=== PATIENT | female | born 1965 | race Asian ===

== ENCOUNTER 2023-08-16 14:05 | Outpatient (AMB) | payer OTHER, SELFPAY ==
--- NOTE | 2023-08-16 14:09 | HO.NEPHOV ---
HPI HPI Comments History of Present Illness Details Sheree is a pleasant middle-aged woman with a history of longstanding hypertension obesity and dyslipidemia with CKD. She has elected current episodes of hyperkalemia. She was accompanied by her son was able to translate today. She does not have any specific urinary complaints. No edema. No shortness of breath. She has had vague abdominal pain for last few months without any associated diarrhea or constipation. She has no pain today [facility] Social History (Updated 08/16/23 @ 14:18 by Dori Mo) Alcohol intake: never Patient Tobacco Use Status: Never used Tobacco Vital Signs 08/16/23 14:13 Height 5 ft 4 in Weight 174 lb BMI 29.9 BP 132/74 Blood Pressure Location Lt brachial Position Sitting Pulse 85 Pulse Source Pulse Oximeter Pulse Oximetry (%) 98 Oxygen Delivery Method Room Air Physical Exam Vital Signs: Last Vital Signs Pulse 85 08/16/23 14:13 BP 132/74 08/16/23 14:13 Pulse Ox 98 08/16/23 14:13 Oxygen Delivery Method Room Air 08/16/23 14:13 BMI result Body Mass Index 29.9 Const General: comfortable; No acute distress Orientation/consciousness: patient oriented x3 Eyes General: appearance normal, both eyes and all related structures Visual Bullock: normal visual bullock by confrontation Neck Neck: Yes supple and Yes no JVD Resp Effort & Inspection: normal respiratory effort and respiratory effort not decreased Auscultation: rhonchi Cardio Palpation: no palpable S3 and no palpable S4 Heart sounds: no rubs GI Inspection: Yes normal to inspection Palpation (GI): Soft to palpation Percussion: Yes normal to percussion Auscultation: normal bowel sounds General: Yes no CVA tenderness Back/Spine/Pelvis Back: no CVA tenderness Skin General skin exam: no petechiae and no purpura Neuro General: patient oriented x3 and no focal motor deficits Extrem General: No clubbing and No edema Results Reviewed Results Reviewed: Lab results from November 10 was reviewed Potassium was normal Assessment & Plan Assessment & Plan (1) CKD (chronic kidney disease) stage 3, GFR 30-59 ml/min: Code(s): N18.30 - Chronic kidney disease, stage 3 unspecified (2) Hyperkalemia: Code(s): E87.5 - Hyperkalemia Plan Middle-aged woman with longstanding diabetes mellitus which has been suboptimally controlled has CKD most likely due to diabetic nephropathy. She has significant proteinuria again due to underlying diabetic kidney disease. She has had recurrent hyperkalemia. She has history of hypertension and blood pressure has been well controlled. Recommendations Low-sodium low-potassium diet. Continue with low-dose of losartan for renal protection. She will benefit from in his SGLT2 inhibitor Continue with hydrochlorothiazide for both to control blood pressure and Kaleuresis. Discussed importance of tight control of blood sugar and weight loss to slow portion disease. Lab works as ordered. Answered all the questions Orders: Orders Electrolytes Today N18.30 - Chronic kidney disease, stage 3 unspecified Blood Urea Nitrogen Today N18.30 - Chronic kidney disease, stage 3 unspecified Creatinine Today N18.30 - Chronic kidney disease, stage 3 unspecified Complete Blood Count no Diff Today N18.30 - Chronic kidney disease, stage 3 unspecified Total Protein Urine Random Today N18.30 - Chronic kidney disease, stage 3 unspecified Hemoglobin A1c Today N18.30 - Chronic kidney disease, stage 3 unspecified Electrolytes 2 Months N18.30 - Chronic kidney disease, stage 3 unspecified Blood Urea Nitrogen 2 Months N18.30 - Chronic kidney disease, stage 3 unspecified Calcium Today N18.30 - Chronic kidney disease, stage 3 unspecified Creatinine Urine Today N18.30 - Chronic kidney disease, stage 3 unspecified Creatinine 2 Months N18.30 - Chronic kidney disease, stage 3 unspecified Coding Level of Care Code Est Pt Level 3 (37383) Diagnoses CKD (chronic kidney disease) stage 3, GFR 30-59 ml/min N18.30 Hyperkalemia E87.5
[2023-08-16 14:13] VITALS: BP 132/74; PULSE 85; O2SAT 98; BMI 29.9
== END 2023-08-16 14:38 | disposition home or self-care (01) ==
PROVIDERS: Visit Provider Internal Medicine Hypertension Specialist
DX: N18.30 Chronic kidney disease, stage 3 unspecified (principal); E87.5 Hyperkalemia
CPT/HCPCS: 99213

== ENCOUNTER 2023-08-16 14:05 | Outpatient (REF) | payer OTHER, SELFPAY | END 2023-08-16 14:06 | disposition home or self-care (01) | LOC: CF 14:05 | PROVIDERS: Visit Provider Internal Medicine Hypertension Specialist | DX: N18.30 Chronic kidney disease, stage 3 unspecified (principal); E87.5 Hyperkalemia | CPT/HCPCS: 99212 ==

== ENCOUNTER 2023-10-18 10:43 | Outpatient (AMB) | payer OTHER, SELFPAY ==
[2023-10-18 10:50] VITALS: BP 126/80; PULSE 87; O2SAT 98; BMI 29.7
--- NOTE | 2023-10-18 10:50 | HO.NEPHOV ---
HPI HPI Comments History of Present Illness Details Sheree is a pleasant middle-aged woman with a history of longstanding hypertension obesity and dyslipidemia with CKD. She has elected current episodes of hyperkalemia. She was accompanied by her son was able to translate today. She does not have any specific urinary complaints. No edema. No shortness of breath. She has had vague abdominal pain for last few months without any associated diarrhea or constipation. She has no pain today [facility] Social History Alcohol intake: never Patient Tobacco Use Status: Never used Tobacco Vital Signs 10/18/23 10:50 Height 5 ft 4 in Weight 173 lb 4 oz BMI 29.7 BP 126/80 Blood Pressure Location Lt brachial Position Sitting Pulse 87 Pulse Source Pulse Oximeter Pulse Oximetry (%) 98 Oxygen Delivery Method Room Air Physical Exam Vital Signs: Last Vital Signs Pulse 87 10/18/23 10:50 BP 126/80 10/18/23 10:50 Pulse Ox 98 10/18/23 10:50 Oxygen Delivery Method Room Air 10/18/23 10:50 BMI result Body Mass Index 29.7 Const General: comfortable; No acute distress Orientation/consciousness: patient oriented x3 Eyes General: appearance normal, both eyes and all related structures Visual Buck: normal visual buck by confrontation Neck Neck: Yes supple and Yes no JVD Resp Effort & Inspection: normal respiratory effort and respiratory effort not decreased Auscultation: rhonchi Cardio Palpation: no palpable S3 and no palpable S4 Heart sounds: no rubs GI Inspection: Yes normal to inspection Palpation (GI): Soft to palpation Percussion: Yes normal to percussion Auscultation: normal bowel sounds General: Yes no CVA tenderness Back/Spine/Pelvis Back: no CVA tenderness Skin General skin exam: no petechiae and no purpura Neuro General: patient oriented x3 and no focal motor deficits Extrem General: No clubbing and No edema Assessment & Plan Assessment & Plan (1) CKD (chronic kidney disease) stage 3, GFR 30-59 ml/min: Code(s): N18.30 - Chronic kidney disease, stage 3 unspecified (2) Hyperkalemia: Code(s): E87.5 - Hyperkalemia Plan Middle-aged woman with longstanding diabetes mellitus which has been suboptimally controlled has CKD most likely due to diabetic nephropathy. She has significant proteinuria again due to underlying diabetic kidney disease. She has had recurrent hyperkalemia. She has history of hypertension and blood pressure has been well controlled. Recommendations Low-sodium low-potassium diet. Continue with low-dose of losartan for renal protection. She will benefit from SGLT2 inhibitor Continue with hydrochlorothiazide for both to control blood pressure and Kaleuresis. Discussed importance of tight control of blood sugar and weight loss to slow portion disease. Lab works as ordered. Orders: Orders Comprehensive Met. Panel 4 Months N18.30 - Chronic kidney disease, stage 3 unspecified Complete Blood Count no Diff 4 Months N18.30 - Chronic kidney disease, stage 3 unspecified Coding Level of Care Code Est Pt Level 4 (44228) Diagnoses CKD (chronic kidney disease) stage 3, GFR 30-59 ml/min N18.30 Hyperkalemia E87.5 Results Reviewed Nephrology Results: No Data to Display
== END 2023-10-18 11:05 | disposition home or self-care (01) ==
PROVIDERS: Visit Provider Internal Medicine Hypertension Specialist
DX: N18.30 Chronic kidney disease, stage 3 unspecified (principal); E87.5 Hyperkalemia
CPT/HCPCS: 99214

== ENCOUNTER → 2023-10-18 10:43 | Outpatient (BNVA) | payer OTHER, SELFPAY | PROVIDERS: Visit Provider Internal Medicine Hypertension Specialist | DX: I12.9 Hypertensive chronic kidney disease with stage 1 through stage 4 chronic kidney disease, or unspecified chronic kidney disease (principal); N18.30 Chronic kidney disease, stage 3 unspecified; E87.5 Hyperkalemia; Z79.899 Other long term (current) drug therapy | CPT/HCPCS: 99212 ==

== ENCOUNTER 2024-02-14 10:00 | Outpatient (AMB) | payer OTHER, SELFPAY ==
[2024-02-14 10:04] VITALS: BP 132/78; PULSE 82; O2SAT 98; BMI 30.6
--- NOTE | 2024-02-14 10:04 | HO.NEPHOV_ITS ---
Vital Signs 02/14/24 10:04 Height 5 ft 4 in Weight 178 lb BMI 30.6 BP 132/78 Blood Pressure Location Lt brachial Position Sitting Pulse 82 Pulse Source Pulse Oximeter Pulse Oximetry (%) 98 Oxygen Delivery Method Room Air Intake Visit Reasons: May follow up? Confirmed Barrel Bridge Assembler Required: No Accompanied by: Son Allergies No Known Allergies Allergy (Verified 02/14/24 10:07) Medication List - Last Reconciled 02/14/24 by Juan C Bravo MD aspirin 81 mg PO DAILY atorvastatin 40 mg PO DAILY cholecalciferol (vitamin D3) (Vitamin D3) 25 mcg PO DAILY dapagliflozin propanediol (Farxiga) 10 mg PO DAILY dulaglutide (Trulicity) 0.75 mg subcut QWEEK folic acid 0.8 mg PO DAILY gabapentin 300 mg PO TID hydrochlorothiazide 25 mg PO DAILY insulin glargine (Lantus U-100 Insulin) 10 units subcut QPM insulin lispro (Humalog KwikPen (U-100) Insulin) 10 units subcut TID losartan 25 mg PO DAILY HPI Comments Details: Sheree is a pleasant middle-aged woman with a history of longstanding hypertension obesity and dyslipidemia with CKD. She has elected current episodes of hyperkalemia. She was accompanied by her son was able to translate today. She does not have any specific urinary complaints. No edema. No shortness of breath. She has had vague abdominal pain for last few months without any associated diarrhea or constipation. She has no pain today [facility] Social History Alcohol intake: never Patient Tobacco Use Status: Never used Tobacco Physical Exam Vital Signs: Last Vital Signs Pulse 82 02/14/24 10:04 BP 132/78 02/14/24 10:04 Pulse Ox 98 02/14/24 10:04 Oxygen Delivery Method Room Air 02/14/24 10:04 BMI result Body Mass Index 30.6 Const General: comfortable; No acute distress Orientation/consciousness: patient oriented x3 Eyes General: appearance normal, both eyes and all related structures Visual Bullock: normal visual bullock by confrontation Neck Neck: Yes supple and Yes no JVD Resp Effort & Inspection: normal respiratory effort and respiratory effort not decreased Auscultation: rhonchi Cardio Palpation: no palpable S3 and no palpable S4 Heart sounds: no rubs GI Inspection: Yes normal to inspection Palpation (GI): Soft to palpation Percussion: Yes normal to percussion Auscultation: normal bowel sounds General: Yes no CVA tenderness Back/Spine/Pelvis Back: no CVA tenderness Skin General skin exam: no petechiae and no purpura Neuro General: patient oriented x3 and no focal motor deficits Extrem General: No clubbing and No edema Results Reviewed Results Reviewed: Labs ordered Nephrology Results: No Data to Display Assessment & Plan Assessment & Plan (1) CKD (chronic kidney disease) stage 3, GFR 30-59 ml/min: Code(s): N18.30 - Chronic kidney disease, stage 3 unspecified Category: Medical (2) Hyperkalemia: Code(s): E87.5 - Hyperkalemia Category: Medical Plan Middle-aged woman with longstanding diabetes mellitus which has been suboptimally controlled has CKD most likely due to diabetic nephropathy. She has significant proteinuria again due to underlying diabetic kidney disease. She has had recurrent hyperkalemia. She has history of hypertension and blood pressure has been well controlled. Recommendations Low-sodium low-potassium diet. Continue with low-dose of losartan for renal protection. She will benefit from SGLT2 inhibitor Continue with hydrochlorothiazide for both to control blood pressure and Kaleuresis. Discussed importance of tight control of blood sugar and weight loss to slow portion disease. Lab works as ordered. Orders: Orders Complete Blood Count Auto Diff Today N18.30 - Chronic kidney disease, stage 3 unspecified Comprehensive Met. Panel Today N18.30 - Chronic kidney disease, stage 3 unspecified, N18.9 - Chronic kidney disease, unspecified Parathyroid Hormone Intact Today N18.30 - Chronic kidney disease, stage 3 unspecified Medications: New dapagliflozin propanediol (Farxiga) 10 mg PO DAILY 90 tabs 0RF losartan 25 mg PO DAILY 90 tabs 0RF atorvastatin 40 mg PO DAILY 90 tabs 0RF folic acid 0.8 mg PO DAILY 90 tabs 0RF hydrochlorothiazide 25 mg PO DAILY 90 tabs 0RF aspirin 81 mg PO DAILY 90 tabs 0RF Coding Level of Care Code Est Pt Level 4 (30475) Diagnoses CKD (chronic kidney disease) stage 3, GFR 30-59 ml/min N18.30 Hyperkalemia E87.5
== END 2024-02-14 10:25 | disposition home or self-care (01) ==
PROVIDERS: Visit Provider Internal Medicine Hypertension Specialist
DX: N18.30 Chronic kidney disease, stage 3 unspecified (principal); E87.5 Hyperkalemia
CPT/HCPCS: 99214

== ENCOUNTER → 2024-02-14 10:00 | Outpatient (BNVA) | payer OTHER, SELFPAY | PROVIDERS: Visit Provider Internal Medicine Hypertension Specialist | DX: N18.30 Chronic kidney disease, stage 3 unspecified (principal); E87.5 Hyperkalemia | CPT/HCPCS: 99212 ==

== ENCOUNTER 2024-02-14 10:32 | Outpatient (REF) | payer OTHER, SELFPAY ==
[2024-02-14 14:47] LABS: MANUAL DIFF FLAG NO
[2024-02-14 14:54] LABS: Parathyroid Hormone Intact 160.1 pg/mL (8.7-77.1)
[2024-02-14 15:21] LABS: Alanine Aminotransferase 12 U/L (0-31); Albumin Level 3.6 g/dL (3.5-5.0); Alkaline Phosphatase 113 U/L (39-117); Anion Gap 11 (12-20); Aspartate Amino Transferase 20 U/L (5-31); Bilirubin Total 0.5 mg/dL (0.0-1.0); Blood Urea Nitrogen 8 mg/dL (9-16); Calcium 8.6 mg/dL (8.4-10.2); Carbon Dioxide 18 mmol/L (22-29); Chloride 114 mmol/L (96-108); Estimated Glomerular Filt Rate 32; Glucose Random 227 mg/dL (60-115); Potassium 4.6 mmol/L (3.3-5.1); Sodium 138 mmol/L (135-145); Total Protein 7.4 g/dL (6.5-8.0)
[2024-02-14 15:24] LABS: Basophils Percent Auto 0.6 % (0-2); Eosinophils Absolute Auto 0.3 X10*3/uL (0.0-0.4); Eosinophils Percent Auto 5.7 % (0-4); Hematocrit 30.1 % (37.0-47.0); Imm Gran Abs Auto 0.01 X10*3/uL (0.00-0.03); Imm Gran Pct Auto 0.2 % (0.0-0.4); Lymphocytes Absolute Auto 1.8 X10*3/uL (1.2-4.9); Mean Corpuscular HGB Conc 33.2 g/dl (31.0-35.0); Mean Corpuscular Hemoglobin 28.4 pg (27.0-33.0); Mean Corpuscular Volume 85.5 fL (80.0-98.0); Mean Platelet Volume 10.1 fL (9.4-12.3); Monocytes Absolute Auto 0.2 X10*3/uL (0.1-1.2); Monocytes Percent Auto 3.6 % (2-11); Neutrophils Percent Auto 56.9 % (45-73); Platelet Count 119 X10*3/uL (160-400); Red Blood Count 3.52 X10*6/uL (4.20-5.50); Red Cell Distribution Width 14.4 % (11.0-16.0); White Blood Count 5.3 X10*3/uL (4.8-10.8)
== END 2024-02-14 10:33 | disposition home or self-care (01) ==
LOC: HO.HKASLDS 10:32
PROVIDERS: Visit Provider Internal Medicine Hypertension Specialist
DX: N18.30 Chronic kidney disease, stage 3 unspecified (principal)
CPT/HCPCS: 36415; 80053; 83970; 85025

== ENCOUNTER 2024-07-31 08:56 | Outpatient (AMB) | payer OTHER, SELFPAY ==
[2024-07-31 08:57] VITALS: BP 148/88; PULSE 97; O2SAT 99; BMI 29.7
--- NOTE | 2024-07-31 08:57 | HO.NEPHOV ---
Vital Signs 07/31/24 08:57 07/31/24 09:17 Height 5 ft 4 in Weight 173 lb BMI 29.7 BP 148/88 H 136/80 Blood Pressure Location Lt brachial Lt brachial Position Sitting Sitting Pulse 97 Pulse Source Pulse Oximeter Pulse Oximetry (%) 99 Oxygen Delivery Method Room Air Intake Visit Reasons: CKD/LVM Design And Sales Consultant Required: Yes Design And Sales Consultant Services: Design And Sales Consultant Offered & Declined (Patients son will interpret) Accompanied by: Son Allergies No Known Allergies Allergy (Verified 07/31/24 09:00) Medication List - Last Reconciled 07/31/24 by Juan C Bravo MD aspirin 81 mg PO DAILY atorvastatin 40 mg PO DAILY cholecalciferol (vitamin D3) (Vitamin D3) 25 mcg PO DAILY dapagliflozin propanediol (Farxiga) 10 mg PO DAILY dulaglutide (Trulicity) mg subcut QWEEK folic acid 0.8 mg PO DAILY gabapentin 300 mg PO TID hydrochlorothiazide 25 mg PO DAILY insulin glargine (Lantus U-100 Insulin) 10 units subcut QPM insulin lispro (Humalog KwikPen (U-100) Insulin) 10 units subcut TID losartan 25 mg PO DAILY HPI Comments Details: Sheree is a pleasant middle-aged woman with a history of longstanding hypertension obesity and dyslipidemia with CKD. She has elected current episodes of hyperkalemia. She was accompanied by her son was able to translate today. She does not have any specific urinary complaints. No edema. No shortness of breath. She has had vague abdominal pain for last few months without any associated diarrhea or constipation. She has no pain today c/o itching [facility] Social History Alcohol intake: never Patient Tobacco Use Status: Never used Tobacco Physical Exam Vital Signs: Last Vital Signs Pulse 97 07/31/24 08:57 BP 148/88 H 07/31/24 08:57 Pulse Ox 99 07/31/24 08:57 Oxygen Delivery Method Room Air 07/31/24 08:57 BMI result Body Mass Index 29.7 Const General: comfortable; No acute distress Orientation/consciousness: patient oriented x3 Eyes General: appearance normal, both eyes and all related structures Visual Bullock: normal visual bullock by confrontation Neck Neck: Yes supple and Yes no JVD Resp Effort & Inspection: normal respiratory effort and respiratory effort not decreased Auscultation: rhonchi Cardio Palpation: no palpable S3 and no palpable S4 Heart sounds: no rubs GI Inspection: Yes normal to inspection Palpation (GI): Soft to palpation Percussion: Yes normal to percussion Auscultation: normal bowel sounds General: Yes no CVA tenderness Back/Spine/Pelvis Back: no CVA tenderness Skin General skin exam: no petechiae and no purpura Neuro General: patient oriented x3 and no focal motor deficits Extrem General: No clubbing and No edema Results Reviewed Nephrology Results: Hgb 10.0 g/dl (12.0-16.0) L 02/14/24 WBC 5.3 X10*3/uL (4.8-10.8) 02/14/24 Plt Count 119 X10*3/uL (160-400) L 02/14/24 Sodium 138 mmol/L (135-145) 02/14/24 Potassium 4.6 mmol/L (3.3-5.1) 02/14/24 Chloride 114 mmol/L (96-108) H 02/14/24 Carbon Dioxide 18 mmol/L (22-29) L 02/14/24 BUN 8 mg/dL (9-16) L 02/14/24 Creatinine 1.64 mg/dL (0.5-1.4) H 02/14/24 Calcium 8.6 mg/dL (8.4-10.2) 02/14/24 PTH Intact 160.1 pg/mL (8.7-77.1) H 02/14/24 Assessment & Plan Assessment & Plan (1) CKD (chronic kidney disease) stage 3, GFR 30-59 ml/min: Code(s): N18.30 - Chronic kidney disease, stage 3 unspecified Category: Medical (2) Hyperkalemia: Code(s): E87.5 - Hyperkalemia Category: Medical Plan Middle-aged woman with longstanding diabetes mellitus which has been suboptimally controlled has CKD most likely due to diabetic nephropathy. She has significant proteinuria again due to underlying diabetic kidney disease. She has had recurrent hyperkalemia. She has history of hypertension and blood pressure has been well controlled. Recommendations Low-sodium low-potassium diet. Continue with low-dose of losartan for renal protection. She will benefit from SGLT2 inhibitor Continue with hydrochlorothiazide for both to control blood pressure and Kaleuresis. Discussed importance of tight control of blood sugar and weight loss to slow portion disease. Lab works as ordered. Trial of Hydroxyine PRN for itching Heartburn- Omeprazole 20 mg QD Orders: Orders Basic Metabolic Panel 4 Months N18.30 - Chronic kidney disease, stage 3 unspecified Complete Blood Count no Diff 4 Months N18.30 - Chronic kidney disease, stage 3 unspecified Medications: New hydroxyzine HCl 10 mg PO BEDTIME PRN 10 tabs 0RF itching omeprazole 20 mg PO DAILY 90 caps 0RF Coding Level of Care Code Est Pt Level 4 (34507) Diagnoses CKD (chronic kidney disease) stage 3, GFR 30-59 ml/min N18.30 Hyperkalemia E87.5
[2024-07-31 09:17] VITALS: BP 136/80
== END 2024-07-31 09:22 | disposition home or self-care (01) ==
PROVIDERS: Visit Provider Internal Medicine Hypertension Specialist
DX: N18.30 Chronic kidney disease, stage 3 unspecified (principal); E87.5 Hyperkalemia
CPT/HCPCS: 99214

== ENCOUNTER → 2024-07-31 08:56 | Outpatient (BNVA) | payer OTHER, SELFPAY | PROVIDERS: Visit Provider Internal Medicine Hypertension Specialist | DX: E87.5 Hyperkalemia (principal); N18.30 Chronic kidney disease, stage 3 unspecified | CPT/HCPCS: 99212 ==

== ENCOUNTER 2025-02-11 15:29 | Outpatient (REF) | payer OTHER, SELFPAY ==
--- OUTSIDE RECORDS SUMMARY | 2025-02-11 15:31 | XMS_ITS | Clinical Summary ---
Author Organization [facility] Facility Address [address] [place] [id number] Care Team Providers Care Integrated Logistics Operations Manager Name Role Phone Cassius Mo MD Primary Care Provider Allergies Active Allergy Reactions Criticality Noted Date Comments Lisinopril Other (see comments) 06/23/2021 Medications folic acid (FOLVITE) 1 MG tablet Comments: Filled Date: Jul 08 2019 9:53AM Patient Notes: TAKE 1 TABLET BY MOUTH EVERY DAY Duration: 90 Active insulin glargine (Basaglar KwikPen) 100 UNIT/ML injection Active Insulin Lispro, 1 Unit Dial, 100 UNIT/ML solution pen-injector Active pantoprazole (PROTONIX) 40 MG EC tablet Take 40 mg by mouth 1 (one) time each day 06/07/2021 Active valACYclovir (VALTREX) 500 MG tablet Take 1 tablet (500 mg total) by mouth 2 (two) times a day with meals 30 tablet 2 06/23/2021 Active losartan (COZAAR) 50 MG tablet Take 1 tablet (50 mg total) by mouth 1 (one) time each day 30 tablet 2 06/23/2021 Active gabapentin (NEURONTIN) 300 MG capsule Take 1 capsule (300 mg total) by mouth 3 (three) times a day 90 capsule 2 06/23/2021 Active hydroCHLOROthia zide (MICROZIDE) 12.5 MG capsule Take 2 capsules (25 mg total) by mouth 1 (one) time each day in the morning 60 capsule 3 06/23/2021 Active ondansetron (ZOFRAN) 4 MG tablet Take 1 tablet (4 mg total) by mouth every 12 (twelve) hours if needed for nausea or vomiting 20 tablet 2 06/23/2021 Active hydrOXYzine (ATARAX) 10 MG tablet TAKE 1 TABLET BY MOUTH EVERY DAY NEEDED FOR ITCHING 30 tablet 1 03/06/2023 Active Active Problems Problem Noted Date Diagnosed Date Acute nontraumatic kidney injury 06/21/2021 Essential hypertension 06/21/2021 Proteinuria 06/21/2021 Immunizations Immunization Administration Dates Next Due Chrisa SARS-COV-2 01/20/2021,12/23/2020 Family History Medical History Relation Comments Diabetes Father Diabetes Mother Hypertension Mother Diabetes Sibling Relation Status Comments Father Unknown Mother Unknown Sibling Social History Tobacco Use Types Packs/Day Years Used Date Smoking Tobacco: Never Smokeless Tobacco: Never Alcohol Use Standard Drinks/Week Comments No 0 (1 standard drink = 0.6 oz pur e alcohol) Comments Unknown Sex and Gender Information Value Date Recorded Sex Assigned at Not on file Legal Sex Female 4:52 PM EST Gender Identity Not on file Sexual Orientation Not on file Last Filed Vital Signs Vital Sign Reading Time Taken Comments Blood Pressure 124/80 12/28/2022 2:58 PM EDT Pulse 85 12/28/2022 2:58 PM EDT Temperature - - Respiratory Rate - - Oxygen Saturation 98% 12/28/2022 2:58 PM EDT Inhaled Oxygen Concentration - - Weight 84 kg (185 lb 3.2 oz) 12/28/2022 2:58 PM EDT Height 167.6 cm (5' 6 ) 12/28/2022 2:58 PM EDT Body Mass Index 29.89 12/28/2022 2:58 PM EDT Plan of Treatment Health Maintenance Due Date Last Done Comments Breast Cancer Screening 1965 Hepatitis B Vaccine (1 of 3 - 19+ 3-dose series) 09/1811/23/2015 Colorectal Cancer Screening: Annual FOBT 2014 Colorectal Cancer Screening: Colonoscopy 2014 Colorectal Cancer Screening: Sigmoidoscopy 2014 Pneumococcal Vaccine: 50+ Years (2 of 2 - PCV) 019 04/27/2018 Diabetes: Hemoglobin A1C 12/28/2022 Diabetes: Ophthalmology Exam 12/28/2022 Diabetes: Pedal Pulse Checked 12/28/2022 Diabetes: Sensory Foot Exam 12/28/2022 Diabetes: Visual Foot Exam 12/28/2022 Influenza Vaccine (Season Ended) 2025 Pneumococcal Vaccine: Peds ( 0 to 5 Years) and At-Risk Patients (6 to 49 Years) Discontinued 04/27/2018 Insurance [facility] Medicaid [facility] Medicaid Care Teams Integrated Logistics Operations Manager Relationship Specialty Start Date End Date Cassius Mo MD [facility] [address] [place] [address] PCP - General 09/28/20
[2025-02-11 18:07] LABS: Hematocrit 25.6 % (37.0-47.0); Hemoglobin 8.5 g/dl (12.0-16.0); Mean Corpuscular HGB Conc 33.2 g/dl (31.0-35.0); Mean Corpuscular Hemoglobin 29.9 pg (27.0-33.0); Mean Corpuscular Volume 90.1 fL (80.0-98.0); Mean Platelet Volume 10.4 fL (9.4-12.3); Red Blood Count 2.84 X10*6/uL (4.20-5.50); Red Cell Distribution Width 16.5 % (11.0-16.0); White Blood Count 4.6 X10*3/uL (4.8-10.8)
[2025-02-11 18:24] LABS: Alanine Aminotransferase 16 U/L (0-31); Albumin Level 3.2 g/dL (3.5-5.0); Alkaline Phosphatase 83 U/L (39-117); Anion Gap 11 (12-20); Aspartate Amino Transferase 30 U/L (5-31); Bilirubin Total 0.4 mg/dL (0.0-1.0); Blood Urea Nitrogen 20 mg/dL (9-16); Calcium 7.1 mg/dL (8.4-10.2); Carbon Dioxide 16 mmol/L (22-29); Chloride 113 mmol/L (96-108); Estimated Glomerular Filt Rate 17; Glucose Random 404 mg/dL (60-115); Potassium 5.5 mmol/L (3.3-5.1); Sodium 134 mmol/L (135-145); Total Protein 6.9 g/dL (6.5-8.0)
[2025-02-11 20:39] LABS: Platelet Count 83 X10*3/uL (160-400)
== END 2025-02-11 15:30 | disposition home or self-care (01) ==
LOC: HO.HKASLDS 15:29
PROVIDERS: Visit Provider Internal Medicine Hypertension Specialist
DX: N18.30 Chronic kidney disease, stage 3 unspecified (principal)
CPT/HCPCS: 36415; 80053; 85027

== ENCOUNTER 2025-02-19 09:52 | Outpatient (AMB) | payer OTHER, SELFPAY ==
[2025-02-19 09:57] VITALS: BP 166/98; PULSE 96; O2SAT 98; BMI 30.4
--- NOTE | 2025-02-19 09:57 | HO.NEPHOV_ITS ---
Vital Signs 02/19/25 09:57 02/19/25 10:15 Height 5 ft 4 in Weight 177 lb BMI 30.4 BP 166/98 H 140/82 H Blood Pressure Location Lt brachial Lt brachial Position Sitting Sitting Pulse 96 Pulse Source Pulse Oximeter Pulse Oximetry (%) 98 Oxygen Delivery Method Room Air Intake Visit Reasons: Review Lab Results/ Conf Real Estate Assessor Required: Yes Real Estate Assessor Services: Real Estate Assessor Offered & Declined (SOn will translate ) Accompanied by: Son Allergies No Known Allergies Allergy (Verified 02/19/25 09:59) Medication List - Last Reconciled 02/19/25 by Juan C Bravo MD aspirin 81 mg PO DAILY atorvastatin 40 mg PO DAILY cholecalciferol (vitamin D3) (Vitamin D3) 25 mcg PO DAILY dapagliflozin propanediol (Farxiga) 10 mg PO DAILY dulaglutide (Trulicity) mg subcut QWEEK folic acid 0.8 mg PO DAILY gabapentin 300 mg PO TID hydrochlorothiazide 25 mg PO DAILY hydroxyzine HCl 10 mg PO BEDTIME PRN insulin glargine (Lantus U-100 Insulin) 10 units subcut QPM insulin lispro (Humalog KwikPen (U-100) Insulin) 10 units subcut TID losartan 25 mg PO DAILY omeprazole 20 mg PO DAILY HPI Comments Details: Sheree is a pleasant middle-aged woman with a history of longstanding hypertension obesity and dyslipidemia with CKD. She has elected current episodes of hyperkalemia. She was accompanied by her son was able to translate today. She does not have any specific urinary complaints. No edema. No shortness of breath. She has had vague abdominal pain for last few months without any associated diarrhea or constipation. She has no pain today c/o itching 02/19/25 59-year-old female presenting with concerns regarding her kidney function, hypertension, and the management of her diabetes. She reports experiencing edema in her face, feet, and belly, which is a recent development. Her blood pressure was recorded at 166/98 mmHg, and she is under treatment with hydrochlorothiazide 25 mg and losartan 25 mg; however, blood pressure control is still a challenge. Her diabetes management is similarly challenging, with recent blood glucose levels significantly high at 404 mg/dL and abnormal fluctuating values. Current medication includes Lantus 10 units and Lispro 10 units three times daily. She also reports elevated potassium levels, suggesting possible hyperkalemia, although no significant alterations in urination patterns were noted. The patient would benefit from an updated evaluation and management plan addressing these intertwined conditions. [facility] Social History Alcohol intake: never Patient Tobacco Use Status: Never used Tobacco Physical Exam Vital Signs: Last Vital Signs Pulse 96 02/19/25 09:57 BP 166/98 H 02/19/25 09:57 Pulse Ox 98 02/19/25 09:57 Oxygen Delivery Method Room Air 02/19/25 09:57 BMI result Body Mass Index 30.4 Const General: comfortable; No acute distress Orientation/consciousness: patient oriented x3 Eyes General: appearance normal, both eyes and all related structures Visual Bullock: normal visual bullock by confrontation Neck Neck: Yes supple and Yes no JVD Resp Effort & Inspection: normal respiratory effort and respiratory effort not decreased Auscultation: rhonchi Cardio Palpation: no palpable S3 and no palpable S4 Heart sounds: no rubs GI Inspection: Yes normal to inspection Palpation (GI): Soft to palpation Percussion: Yes normal to percussion Auscultation: normal bowel sounds General: Yes no CVA tenderness Back/Spine/Pelvis Back: no CVA tenderness Skin General skin exam: no petechiae and no purpura Neuro General: patient oriented x3 and no focal motor deficits Extrem General: No clubbing and No edema Results Reviewed Nephrology Results: Hgb 8.5 g/dl (12.0-16.0) L 02/11/25 WBC 4.6 X10*3/uL (4.8-10.8) L 02/11/25 Plt Count 83 X10*3/uL (160-400) L 02/11/25 Sodium 134 mmol/L (135-145) L 02/11/25 Potassium 5.5 mmol/L (3.3-5.1) H 02/11/25 Chloride 113 mmol/L (96-108) H 02/11/25 Carbon Dioxide 16 mmol/L (22-29) L 02/11/25 BUN 20 mg/dL (9-16) H 02/11/25 Creatinine 2.85 mg/dL (0.5-1.4) H 02/11/25 Calcium 7.1 mg/dL (8.4-10.2) L 02/11/25 PTH Intact 160.1 pg/mL (8.7-77.1) H 02/14/24 Assessment & Plan Assessment & Plan (1) CKD (chronic kidney disease) stage 3, GFR 30-59 ml/min: Code(s): N18.30 - Chronic kidney disease, stage 3 unspecified Category: Medical (2) Hyperkalemia: Code(s): E87.5 - Hyperkalemia Category: Medical Plan Middle-aged woman with longstanding diabetes mellitus which has been suboptimally controlled has CKD most likely due to diabetic nephropathy. She has significant proteinuria again due to underlying diabetic kidney disease. She has had recurrent hyperkalemia. She has history of hypertension and blood pressure has been well controlled. Recommendations Low-sodium low-potassium diet. Continue with low-dose of losartan for renal protection. She will benefit from SGLT2 inhibitor Continue with hydrochlorothiazide for both to control blood pressure and Kaleuresis. Discussed importance of tight control of blood sugar and weight loss to slow portion disease. Lab works as ordered. Trial of Hydroxyine PRN for itching Heartburn- Omeprazole 20 mg QD 02/19/25 Today's visit aims to address concerns with kidney function, hypertension, and diabetes control. We have initiated a thorough evaluation process with blood tests?including a metabolic panel and A1c?and a kidney ultrasound to assess renal function and clarify the extent of edema. Adjustments to her hypertension management will be considered post-evaluation, given existing medication seems insufficient. Her elevated blood glucose readings necessitate possible insulin regimen adjustments and stricter blood glucose monitoring at home. Recommendations include reducing dietary potassium intake to manage hyperkalemia. A follow-up visit has been scheduled in a couple of weeks to reassess and refine her management further. Orders: Orders Hemoglobin A1c Today E87.5 - Hyperkalemia, N18.30 - Chronic kidney disease, stage 3 unspecified Basic Metabolic Panel Today E87.5 - Hyperkalemia, N18.30 - Chronic kidney disease, stage 3 unspecified US renal BI Today E87.5 - Hyperkalemia, I10 - Essential (primary) hypertension, N18.30 - Chronic kidney disease, stage 3 unspecified Medications: Refilled losartan 25 mg PO DAILY 90 tabs 0RF hydrochlorothiazide 25 mg PO DAILY 90 tabs 0RF Coding Level of Care Code Est Pt Level 4 (97243) Diagnoses CKD (chronic kidney disease) stage 3, GFR 30-59 ml/min N18.30 Hyperkalemia E87.5
[2025-02-19 10:15] VITALS: BP 140/82
--- OUTSIDE RECORDS SUMMARY | 2025-02-19 10:26 | XMS_ITS | Clinical Summary ---
Author Organization [facility] Facility Address [address] [place] [id number] Care Team Providers Care Blue Line Operator Name Role Phone Cassius Mo MD Primary [...] Health Medicaid [facility] [facility] Medicaid Care Teams Blue Line Operator Relationship Specialty Start Date End Date Cassius Mo MD [facility] [address] [place] [address] PCP - General 09/28/20
== END 2025-02-19 11:11 | disposition home or self-care (01) ==
LOC: HO.HKAS 09:53
PROVIDERS: Visit Provider Internal Medicine Hypertension Specialist
DX: N18.30 Chronic kidney disease, stage 3 unspecified (principal); E87.5 Hyperkalemia
CPT/HCPCS: 99214

== ENCOUNTER → 2025-02-19 09:52 | Outpatient (BNVA) | payer OTHER, SELFPAY | PROVIDERS: Visit Provider Internal Medicine Hypertension Specialist ==

== ENCOUNTER 2025-02-19 10:13 | Outpatient (REF) | payer OTHER, SELFPAY ==
[2025-02-19 18:12] LABS: Hematocrit 28.4 % (37.0-47.0); Hemoglobin 9.3 g/dl (12.0-16.0); Mean Corpuscular HGB Conc 32.7 g/dl (31.0-35.0); Mean Corpuscular Hemoglobin 29.5 pg (27.0-33.0); Mean Corpuscular Volume 90.2 fL (80.0-98.0); Mean Platelet Volume 10.4 fL (9.4-12.3); Platelet Count 137 X10*3/uL (160-400); Red Blood Count 3.15 X10*6/uL (4.20-5.50); Red Cell Distribution Width 16.1 % (11.0-16.0); White Blood Count 6.4 X10*3/uL (4.8-10.8)
[2025-02-19 18:22] LABS: Anion Gap 10 (12-20); Blood Urea Nitrogen 15 mg/dL (9-16); Calcium 10.6 mg/dL (8.4-10.2); Carbon Dioxide 21 mmol/L (22-29); Chloride 110 mmol/L (96-108); Estimated Glomerular Filt Rate 22; Glucose Random 138 mg/dL (60-115); Potassium 4.9 mmol/L (3.3-5.1); Sodium 136 mmol/L (135-145)
[2025-02-19 18:24] LABS: Estimated Average Glucose 169 mg/dL; Hemoglobin A1C 150.9487 umol/L; Hemoglobin A1c % 7.5 % (<6.0)
== END 2025-02-19 10:14 | disposition home or self-care (01) ==
LOC: HO.HKASLDS 10:13
PROVIDERS: Visit Provider Internal Medicine Hypertension Specialist
DX: N18.30 Chronic kidney disease, stage 3 unspecified (principal); E87.5 Hyperkalemia; R80.9 Proteinuria, unspecified; I10 Essential (primary) hypertension; E78.5 Hyperlipidemia, unspecified; L29.9 Pruritus, unspecified; R60.9 Edema, unspecified; E66.9 Obesity, unspecified; Z68.30 Body mass index [BMI] 30.0-30.9, adult; Z79.4 Long term (current) use of insulin
CPT/HCPCS: 36415; 80048; 83036; 85027; 99212

== ENCOUNTER 2025-03-12 10:33 | Outpatient (AMB) | payer OTHER, SELFPAY ==
[2025-03-12 10:35] VITALS: BP 120/76; PULSE 95; O2SAT 98; BMI 30.2
--- NOTE | 2025-03-12 10:35 | HO.NEPHOV_ITS ---
Vital Signs 03/12/25 10:35 Height 5 ft 4 in Weight 176 lb BMI 30.2 BP 120/76 Blood Pressure Location Lt brachial Position Sitting Pulse 95 Pulse Source Pulse Oximeter Pulse Oximetry (%) 98 Oxygen Delivery Method Room Air Intake Visit Reasons: Follow up CONF Calender Operator Helper Required: No Accompanied by: Son Allergies No Known Allergies Allergy (Verified 03/12/25 10:51) Medication List - Last Reconciled 03/12/25 by Juan C Bravo MD aspirin 81 mg PO DAILY atorvastatin 40 mg PO DAILY cholecalciferol (vitamin D3) (Vitamin D3) 25 mcg PO DAILY dapagliflozin propanediol (Farxiga) 10 mg PO DAILY dulaglutide (Trulicity) mg subcut QWEEK folic acid 0.8 mg PO DAILY gabapentin 300 mg PO TID hydrochlorothiazide 25 mg PO DAILY hydroxyzine HCl 10 mg PO BEDTIME PRN insulin glargine (Lantus U-100 Insulin) 10 units subcut QPM insulin lispro (Humalog KwikPen (U-100) Insulin) 10 units subcut TID losartan 25 mg PO DAILY omeprazole 20 mg PO DAILY HPI Comments Details: Sheree is a pleasant middle-aged woman with a history of longstanding hypertension obesity and dyslipidemia with CKD. She has elected current episodes of hyperkalemia. She was accompanied by her son was able to translate today. She does not have any specific urinary complaints. No edema. No shortness of breath. She has had vague abdominal pain for last few months without any associated diarrhea or constipation. She has no pain today c/o itching 02/19/25 59-year-old female presenting with concerns regarding her kidney function, hypertension, and the management of her diabetes. She reports experiencing edema in her face, feet, and belly, which is a recent development. Her blood pressure was recorded at 166/98 mmHg, and she is under treatment with hydrochlorothiazide 25 mg and losartan 25 mg; however, blood pressure control is still a challenge. Her diabetes management is similarly challenging, with recent blood glucose levels significantly high at 404 mg/dL and abnormal fluctuating values. Current medication includes Lantus 10 units and Lispro 10 units three times daily. She also reports elevated potassium levels, suggesting possible hyperkalemia, although no significant alterations in urination patterns were noted. The patient would benefit from an updated evaluation and management plan addressing these intertwined conditions. 03/12/25 The patient is a 59-year-old female presenting with diabetic neuropathy and kidney function monitoring. She reports persistent pain due to diabetic neuropathy. Her kidney function has improved, with better potassium and blood sugar levels compared to previous visits. Her blood pressure is well-controlled, and her medication regimen remains unchanged. An ultrasound has been ordered [facility] Social History Alcohol intake: never Patient Tobacco Use Status: Never used Tobacco Physical Exam Vital Signs: Last Vital Signs Pulse 95 03/12/25 10:35 BP 120/76 03/12/25 10:35 Pulse Ox 98 03/12/25 10:35 Oxygen Delivery Method Room Air 03/12/25 10:35 BMI result Body Mass Index 30.2 Const General: comfortable; No acute distress Orientation/consciousness: patient oriented x3 Eyes General: appearance normal, both eyes and all related structures Visual Bullock: normal visual bullock by confrontation Neck Neck: Yes supple and Yes no JVD Resp Effort & Inspection: normal respiratory effort and respiratory effort not decreased Auscultation: rhonchi Cardio Palpation: no palpable S3 and no palpable S4 Heart sounds: no rubs GI Inspection: Yes normal to inspection Palpation (GI): Soft to palpation Percussion: Yes normal to percussion Auscultation: normal bowel sounds General: Yes no CVA tenderness Back/Spine/Pelvis Back: no CVA tenderness Skin General skin exam: no petechiae and no purpura Neuro General: patient oriented x3 and no focal motor deficits Extrem General: No clubbing and No edema Results Reviewed Nephrology Results: Hgb, (12.0-16.0) 9.3 g/dl L 02/19/25 WBC, (4.8-10.8) 6.4 X10*3/uL 02/19/25 Plt Count, (160-400) 137 X10*3/uL L Δ 02/19/25 Sodium, (135-145) 136 mmol/L 02/19/25 Potassium, (3.3-5.1) 4.9 mmol/L 02/19/25 Chloride, (96-108) 110 mmol/L H 02/19/25 Carbon Dioxide, (22-29) 21 mmol/L L 02/19/25 BUN, (9-16) 15 mg/dL 02/19/25 Creatinine, (0.5-1.4) 2.27 mg/dL H 02/19/25 Calcium, (8.4-10.2) 10.6 mg/dL H Δ 02/19/25 PTH Intact, (8.7-77.1) 160.1 pg/mL H 02/14/24 Assessment & Plan Assessment & Plan (1) CKD (chronic kidney disease) stage 3, GFR 30-59 ml/min: Code(s): N18.30 - Chronic kidney disease, stage 3 unspecified Category: Medical Plan Middle-aged woman with longstanding diabetes mellitus which has been suboptimally controlled has CKD most likely due to diabetic nephropathy. She has significant proteinuria again due to underlying diabetic kidney disease. She has had recurrent hyperkalemia. She has history of hypertension and blood pressure has been well controlled. Recommendations Low-sodium low-potassium diet. Continue with low-dose of losartan for renal protection. She will benefit from SGLT2 inhibitor Continue with hydrochlorothiazide for both to control blood pressure and Kaleuresis. Discussed importance of tight control of blood sugar and weight loss to slow portion disease. Lab works as ordered. Trial of Hydroxyine PRN for itching Heartburn- Omeprazole 20 mg QD 02/19/25 Today's visit aims to address concerns with kidney function, hypertension, and diabetes control. We have initiated a thorough evaluation process with blood tests?including a metabolic panel and A1c?and a kidney ultrasound to assess renal function and clarify the extent of edema. Adjustments to her hypertension management will be considered post-evaluation, given existing medication seems insufficient. Her elevated blood glucose readings necessitate possible insulin regimen adjustments and stricter blood glucose monitoring at home. Recommendations include reducing dietary potassium intake to manage hyperkalemia. A follow-up visit has been scheduled in a couple of weeks to reassess and r efine her management further. 03/12/25 - Continue taking your current medications as prescribed. - Avoid foods high in potassium, such as oranges and bananas. - Attend the scheduled ultrasound appointment. - Follow up in three months for reassessment. Orders: Orders Basic Metabolic Panel 3 Months N18.30 - Chronic kidney disease, stage 3 unspecified Complete Blood Count no Diff 3 Months N18.30 - Chronic kidney disease, stage 3 unspecified US renal BI Today I10 - Essential (primary) hypertension, N18.30 - Chronic kidney disease, stage 3 unspecified Coding Level of Care Code Est Pt Level 4 (17323) Diagnoses CKD (chronic kidney disease) stage 3, GFR 30-59 ml/min N18.30
--- OUTSIDE RECORDS SUMMARY | 2025-03-12 12:28 | XMS_ITS | Clinical Summary ---
Author Organization [facility] Facility Address [address] [place] [id number] Care Team Providers Care Corrections Officer Name Role Phone Cassius Mo MD Primary [...] Health Medicaid [facility] Medicaid Care Teams Corrections Officer Relationship Specialty Start Date End Date Cassius Mo MD [facility] [address] [place] [address] PCP - General 09/28/20
== END 2025-03-12 11:01 | disposition home or self-care (01) ==
LOC: HO.HKAS 10:34
PROVIDERS: Visit Provider Internal Medicine Hypertension Specialist
DX: N18.30 Chronic kidney disease, stage 3 unspecified (principal)
CPT/HCPCS: 99214

== ENCOUNTER → 2025-03-12 10:33 | Outpatient (BNVA) | payer OTHER, SELFPAY | PROVIDERS: Visit Provider Internal Medicine Hypertension Specialist | DX: N18.30 Chronic kidney disease, stage 3 unspecified (principal); I10 Essential (primary) hypertension; E11.9 Type 2 diabetes mellitus without complications; R60.1 Generalized edema | CPT/HCPCS: 99212 ==

== ENCOUNTER 2025-06-04 11:02 | Outpatient (REF) | payer OTHER, SELFPAY ==
[2025-06-04 18:35] LABS: Hematocrit 26.8 % (37.0-47.0); Hemoglobin 8.8 g/dl (12.0-16.0); Mean Corpuscular HGB Conc 32.8 g/dl (31.0-35.0); Mean Corpuscular Hemoglobin 29.9 pg (27.0-33.0); Mean Corpuscular Volume 91.2 fL (80.0-98.0); NRBC Abs Auto 0.000 X10*3/uL (0.0-0.012); NRBC Pct Auto 0.0 /100WBC (0.0-0.2); Red Blood Count 2.94 X10*6/uL (4.20-5.50); White Blood Count 4.4 X10*3/uL (4.8-10.8)
[2025-06-04 18:42] LABS: Platelet Count 97 X10*3/uL (160-400)
[2025-06-04 19:08] LABS: Parathyroid Hormone Intact 51.7 pg/mL (8.7-77.1)
[2025-06-04 19:29] LABS: Anion Gap 11 (12-20); Blood Urea Nitrogen 17 mg/dL (9-16); Calcium 9.4 mg/dL (8.4-10.2); Carbon Dioxide 20 mmol/L (22-29); Chloride 113 mmol/L (96-108); Estimated Glomerular Filt Rate 19; Potassium 6.2 mmol/L (3.3-5.1); Sodium 138 mmol/L (135-145)
== END 2025-06-04 11:03 | disposition home or self-care (01) ==
LOC: HO.HKASLDS 11:02
PROVIDERS: Visit Provider Internal Medicine Hypertension Specialist
DX: I12.9 Hypertensive chronic kidney disease with stage 1 through stage 4 chronic kidney disease, or unspecified chronic kidney disease (principal); E11.22 Type 2 diabetes mellitus with diabetic chronic kidney disease; E87.5 Hyperkalemia; N18.4 Chronic kidney disease, stage 4 (severe); Z79.899 Other long term (current) drug therapy; Z79.4 Long term (current) use of insulin; Z79.84 Long term (current) use of oral hypoglycemic drugs; Z79.85 Long-term (current) use of injectable non-insulin antidiabetic drugs
CPT/HCPCS: 36415; 80048; 83970; 85027; 99212

== ENCOUNTER 2025-06-04 11:02 | Outpatient (AMB) | payer OTHER, SELFPAY ==
--- NOTE | 2025-06-04 11:03 | HO.NEPHOV ---
Vital Signs 06/04/25 11:04 Height 5 ft 4 in Weight 180 lb BMI 30.9 BP 148/82 H Blood Pressure Location Lt brachial Position Sitting Pulse 95 Pulse Source Pulse Oximeter Pulse Oximetry (%) 99 Oxygen Delivery Method Room Air Intake Visit Reasons: 3 mnts f/u-Conf Supervisor Trust Accounts Required: No Accompanied by: Son Allergies No Known Allergies Allergy (Verified 06/04/25 11:05) Medication List - Last Reconciled 06/04/25 by Juan C Bravo MD aspirin 81 mg PO DAILY atorvastatin 40 mg PO DAILY cholecalciferol (vitamin D3) (Vitamin D3) 25 mcg PO DAILY dapagliflozin propanediol (Farxiga) 10 mg PO DAILY dulaglutide (Trulicity) mg subcut QWEEK folic acid 0.8 mg PO DAILY gabapentin 300 mg PO TID hydrochlorothiazide 25 mg PO DAILY hydroxyzine HCl 10 mg PO BEDTIME PRN insulin glargine (Lantus U-100 Insulin) 10 units subcut QPM insulin lispro (Humalog KwikPen (U-100) Insulin) 10 units subcut TID losartan 25 mg PO DAILY omeprazole 20 mg PO DAILY HPI Comments Details: Sheree is a pleasant middle-aged woman with a history of longstanding hypertension obesity and dyslipidemia with CKD. She has elected current episodes of hyperkalemia. She was accompanied by her son was able to translate today. She does not have any specific urinary complaints. No edema. No shortness of breath. She has had vague abdominal pain for last few months without any associated diarrhea or constipation. She has no pain today c/o itching 02/19/25 59-year-old female presenting with concerns regarding her kidney function, hypertension, and the management of her diabetes. She reports experiencing edema in her face, feet, and belly, which is a recent development. Her blood pressure was recorded at 166/98 mmHg, and she is under treatment with hydrochlorothiazide 25 mg and losartan 25 mg; however, blood pressure control is still a challenge. Her diabetes management is similarly challenging, with recent blood glucose levels significantly high at 404 mg/dL and abnormal fluctuating values. Current medication includes Lantus 10 units and Lispro 10 units three times daily. She also reports elevated potassium levels, suggesting possible hyperkalemia, although no significant alterations in urination patterns were noted. The patient would benefit from an updated evaluation and management plan addressing these intertwined conditions. 03/12/25 The patient is a 59-year-old female presenting with diabetic neuropathy and kidney function monitoring. She reports persistent pain due to diabetic neuropathy. Her kidney function has improved, with better potassium and blood sugar levels compared to previous visits. Her blood pressure is well-controlled, and her medication regimen remains unchanged. An ultrasound has been ordered 06/04/25 The patient is a 59-year-old female he is here for follow up regarding CKD. Diabetes mellitus is well-controlled with an A1c of 6.2. No recent medication changes, adherence reported. Reports hand sensation as 'upside down,' no pain or functional issues noted. Medications: - Hydrocodone: Continued use - Tylenol: For pain management Diagnostic Results: - Labs: A1c 6.2 PFSH Social History Alcohol intake: never Patient Tobacco Use Status: Never used Tobacco Physical Exam Vital Signs: Last Vital Signs Pulse 95 06/04/25 11:04 BP 148/82 H 06/04/25 11:04 Pulse Ox 99 06/04/25 11:04 Oxygen Delivery Method Room Air 06/04/25 11:04 BMI result Body Mass Index 30.9 Const General: comfortable; No acute distress Orientation/consciousness: patient oriented x3 Eyes General: appearance normal, both eyes and all related structures Visual Bullock: normal visual bullock by confrontation Neck Neck: Yes supple and Yes no JVD Resp Effort & Inspection: normal respiratory effort and respiratory effort not decreased Auscultation: rhonchi Cardio Palpation: no palpable S3 and no palpable S4 Heart sounds: no rubs GI Inspection: Yes normal to inspection Palpation (GI): Soft to palpation Percussion: Yes normal to percussion Auscultation: normal bowel sounds General: Yes no CVA tenderness Back/Spine/Pelvis Back: no CVA tenderness Skin General skin exam: no petechiae and no purpura Neuro General: patient oriented x3 and no focal motor deficits Extrem General: No clubbing and No edema Results Reviewed Nephrology Results: Hgb, (12.0-16.0) 9.3 g/dl L 02/19/25 WBC, (4.8-10.8) 6.4 X10*3/uL 06/04/25 Plt Count, (160-400) 137 X10*3/uL L Δ 02/19/25 Sodium, (135-145) 136 mmol/L 02/19/25 Potassium, (3.3-5.1) 4.9 mmol/L 02/19/25 Chloride, (96-108) 110 mmol/L H 02/19/25 Carbon Dioxide, (22-29) 21 mmol/L L 02/19/25 BUN, (9-16) 15 mg/dL 02/19/25 Creatinine, (0.5-1.4) 2.27 mg/dL H 02/19/25 Calcium, (8.4-10.2) 10.6 mg/dL H Δ 02/19/25 PTH Intact, (8.7-77.1) 160.1 pg/mL H 02/14/24 Assessment & Plan Assessment & Plan (1) CKD (chronic kidney disease) stage 3, GFR 30-59 ml/min: Code(s): N18.30 - Chronic kidney disease, stage 3 unspecified Category: Medical Plan Middle-aged woman with longstanding diabetes mellitus which has been suboptimally controlled has CKD most likely due to diabetic nephropathy. She has significant proteinuria again due to underlying diabetic kidney disease. She has had recurrent hyperkalemia. She has history of hypertension and blood pressure has been well controlled. Recommendations Low-sodium low-potassium diet. Continue with low-dose of losartan for renal protection. She will benefit from SGLT2 inhibitor Continue with hydrochlorothiazide for both to control blood pressure and Kaleuresis. Discussed importance of tight control of blood sugar and weight loss to slow portion disease. Lab works as ordered. Trial of Hydroxyine PRN for itching Heartburn- Omeprazole 20 mg QD 02/19/25 Today's visit aims to address concerns with kidney function, hypertension, and diabetes control. We have initiated a thorough evaluation process with blood tests?including a metabolic panel and A1c?and a kidney ultrasound to assess renal function and clarify the extent of edema. Adjustments to her hypertension management will be considered post-evaluation, given existing medication seems insufficient. Her elevated blood glucose readings necessitate possible insulin regimen adjustments and stricter blood glucose monitoring at home. Recommendations include reducing dietary potassium intake to manage hyperkalemia. A follow-up visit has been scheduled in a couple of weeks to reassess and refine her management further. 03/12/25 - Continue taking your current medications as prescribed. - Avoid foods high in potassium, such as oranges and bananas. - Attend the scheduled ultrasound appointment. - Follow up in three months for reassessment. 06/04/2025. CKD 4 in the setting of longstanding diabetes mellitus. Renal function is at baseline. No signs or symptoms of uremia. Fluid status is acceptable. Hypertension maintain blood pressure less than 130/80 encouraged her to stay on low-sodium diet Continue current antihypertensive medications History of mild hyperkalemia. At present potassium is in normal range Encouraged her to stay on low-potassium diet She will continue to monitor potassium. Orders: Orders Basic Metabolic Panel Today E87.5 - Hyperkalemia, N18.30 - Chronic kidney disease, stage 3 unspecified Complete Blood Count no Diff Today E87.5 - Hyperkalemia, N18.30 - Chronic kidney disease, stage 3 unspecified Parathyroid Hormone Intact Today E87.5 - Hyperkalemia, N18.30 - Chronic kidney disease, stage 3 unspecified Medications: New acetaminophen (Tylenol Extra Strength) 500 mg PO BID PRN 90 tabs 0RF fever Coding Level of Care Code Est Pt Level 4 (86069) Diagnoses CKD (chronic kidney disease) stage 3, GFR 30-59 ml/min N18.30
[2025-06-04 11:04] VITALS: BP 148/82; PULSE 95; O2SAT 99; BMI 30.9
--- OUTSIDE RECORDS SUMMARY | 2025-06-04 14:11 | XMS_ITS | Clinical Summary ---
Author Organization [facility] Address [address] [place] [address] Care Team Providers Care Cardiac Rehabilitation Program Director Name Role Phone Unavailable Primary Care Provider Unavailabl e Source Comments PLEASE NOTE, if this patient is a minor, it may be UNLAWFUL to discuss sensitive information that is contained in these records (such as FAMILY PLANNING, MENTAL HEALTH or SUBSTANCE ABUSE) with the minor patient's parent or other person without the patient's specific authorization.[facility] Immunizations Immunization Administration Dates Next Due Moderna COVID-19 Vaccine, re d cap blue label, 12+ Primary Series 01/20/2021,12/23/2020 Social History Tobacco Use Types Packs/Day Years Used Date Smoking Tobacco: Never Assessed Social Connections Answer Date Recorded Connectedness 0 05/30/2024 Financial Resource Strain Answer Date R ecorded Financial Resource Strain 0 2023 Stress Answer Date Recorded Stress 0 01/21/2024 Physical Activity Answer Date Recorded Physical Activity 0 01/21/2024 Food Insecurity Answer Date Recorded Food 0 06/13/2024 Transportation Needs Answer Date Record ed Transportation 0 01/21/2024 Housing Stability Answer Date Recorded Housing 0 01/21/2024 Safety and Environment Answer Date Chad rded Safety 0 01/21/2024 Utilities Answer Date Recorded Utilities 0 01/21/2024 Employment Answer Date Recorded Stress 0 05/30/2024 Comments Unknown Sex and Gender Information Value Date Recorded Sex Assigned at Not on file Legal Sex Female 7:40 AM PDT Gender Identity Not on file Sexual Orientation Not on file Plan of Treatment Health Maintenance Due Date Last Done Comments Anxiety Screening 1965 Diabetes Screening 1965 HPV Screening 1965 Hepatitis C Screening 1965 Lipid Screening 1965 Pap + HPV 1965 Tobacco Screening 1965 HIV Screening 1980 Hypertension Screening (#1) 1983 Imm-DTaP/Tdap/Td (1 - Tdap) 1984 Imm-Hepatitis B (1 of 3 - 19 + 3-dose series) 1984 Cervical Cancer Screening 1986 Pap Smear 1986 Breast Cancer Screening (Mammogram) 2005 CT Colonography 2010 FIT/gFOBT 2010 Fecal DNA 2010 Flexible Sigmoidoscopy 2010 Imm-Pneumococcal 50+ (1 of 1 - PCV) 2015 Imm-Zoster, Recombinant (1 of 2) 2015 Alcohol and Drug Screen 2024 Depression Annual Screen 2024 [id number] (2024- season) 2025 021, 12/23/2020 Imm-Influenza (#1) 2025 Colonoscopy 06/07/2031 06/07/2021, 06/07/2021 Colorectal Cancer Screening 06/07/2031 Cervical Ablation/Cold-Knife Conization Discontinued Cervical Cryotherapy Discontinued Colposcopy Discontinued Endometrial Biopsy Discontinued Excision/Leep Discontinued HPV Genotyping Discontinued Vaginal Pap Discontinued Vulvoscopy Discontinued Procedures Procedure Name Priority Date/Time Associated Diagnosis Comments HISTORIC COLONOSCOPY 06/07/2021 3:00 AM EDT from Last 3 Months or Most Recently Relevant to Health Maintenance Results * HISTORIC COLONOSCOPY (06/07/2021 3:00 AM EDT) 06/07/2021 3:00 AM EDT Wellington Bowman MD PROCEDURES Final Result from Last 3 Months or Most Recently Relevant to Health Maintenance Insurance [facility] [employer]
--- OUTSIDE RECORDS SUMMARY | 2025-06-04 14:11 | XMS_ITS | Clinical Summary ---
Author Organization [facility] Address [address] [place] [id number] Care Team Providers Care Sales Intern Name Role Phone Cassius Mo MD Primary [...] Diabetes: Visual Foot Exam 12/28/2022 Influenza Vaccine (#1) 2025 Pneumococcal Vaccine: Peds ( 0 to 5 Years) and At-Risk Patients (6 to 49 Years) Discontinued 04/27/2018 Insurance [facility] Medicaid [facility] Medicaid Care Teams Sales Intern Relationship Specialty Start Date End Date Cassius Mo MD [facility] [address] [place] [address] PCP - General 09/28/20
== END 2025-06-04 12:37 | disposition home or self-care (01) ==
LOC: HO.HKAS 11:03
PROVIDERS: Visit Provider Internal Medicine Hypertension Specialist
DX: N18.30 Chronic kidney disease, stage 3 unspecified (principal)
CPT/HCPCS: 99214